=== PATIENT | female | born 1970 | race Caucasian/White ===

== ENCOUNTER 2022-06-12 11:05 | Emergency (ER) | payer BC ==
[~2022-06-12] VITALS: Ht 162.6 cm; Wt 72.0 kg
[2022-06-12 11:16] VITALS: BP 124/76
[2022-06-12] MEDS ORDERED: rabies immune globulin/PF 150 unit/ml inj IMVAC STA (13:44)
[2022-06-12] MEDS ORDERED: amox tr/potassium clavulanate 875/125mg TAB PO ONE (13:45)
[2022-06-12] MEDS ORDERED: rabies vaccine (PCEC)/PF 2.5 unit kit IMVAC ONE (13:45)
[2022-06-12] MEDS ORDERED: acetaminophen w/codeine (30MG) #3 tablet PO ONE (13:50)
[2022-06-12] MEDS ORDERED: AMOX-117 PO (15:12)
== END 2022-06-12 15:40 | disposition home or self-care (01) ==
LOC: ER 11:05
DX: S61.210A Laceration without foreign body of right index finger without damage to nail, initial encounter (principal); X58.XXXA Exposure to other specified factors, initial encounter; Y93.89 Activity, other specified; Y92.89 Other specified places as the place of occurrence of the external cause; Y99.8 Other external cause status
CPT/HCPCS: 90376; 90471; 90472; 90675; 99284